=== PATIENT | female | born 1945 | race Asian ===

== ENCOUNTER 2016-03-14 13:06 | Observation (INO) | payer OTHER ==
--- NOTE | 2016-03-14 13:32 | EDPHY ---
H & P Stated Complaint: concerned for unimproved cellulitus R ankle, fever at home HPI/ROS: CHIEF COMPLAINT: HISTORY OF PRESENT ILLNESS: REVIEW OF SYSTEMS: A ten point review of systems was performed and is negative with the exception of the items mentioned in the HPI. Constitutional: No fever Eyes: No eye redness, no eye pain, no change in vision ENT: No sore throat, no earache Cardiovascular: No chest pain, no palpitations Abdominal: no abdominal pain, no nausea, no vomiting, no diarrhea Respiratory: No cough, no shortness of breath Genitourinary: No dysuria, No hematuria, [no urgency, no frequency Musculoskeletal: No back pain, no neck pain, no joint pain, no joint swelling, Skin: No rashes. Neurological: No headache, no new numbness, no new weakness, no difficulty with speech, no changes in memory - Personal History Current Tetanus/Diphtheria Vaccine: Unsure Current Tetanus Diphtheria and Acellular Pertussis (TDAP): Unsure - Medical/Surgical History Hx Asthma: No Hx Chronic Respiratory Disease: No Hx Diabetes: No Hx Cardiac Disease: Yes Hx Renal Disease: No Hx Cirrhosis: No Hx Alcoholism: No Hx HIV/AIDS: No Hx Splenectomy or Spleen Trauma: No Other PMH: cardiac stents-2004 - Social History Smoking Status: Never smoked - Physical Exam Exam: General Appearance: Alert. Vital signs reviewed. * Eyes: Pupils equal and round, no conjunctival injection, no discharge. Anicteric. ENT, Mouth: Mucous membranes are moist, no oropharyngeal erythema or edema. Neck: No lymphadenopathy, supple. Respiratory: Lungs are clear to auscultation; no wheezes, rales, or rhonchi. Cardiovascular: Regular rate and rhythm; no murmur, rub, or gallop. Gastrointestinal: Abdomen is soft and nontender, no masses or organomegaly, bowel sounds normal. Skin: Warm and dry, no rashes on exposed skin, normal color. Back: Nontender to palpation over the thoracolumbar spine. No CVAT. Extremities: No lower extremity edema, no calf tenderness or swelling. Neurological: Alert and oriented. Moving all four extremities easily and equally. Cranial nerves II through XII are examined and are intact (visual acuity not tested). Strength is 5 over 5 bilaterally with testing of all major motor groups. Sensation is intact to light touch over all 4 extremities. Deep tendon reflexes are 2+ in the biceps and knees bilaterally. Gait is normal. [id number] is performed accurately. Psychiatric: Normal affect. Constitutional: Initial Vital Signs Temperature (C) 37.2 C 03/14/16 13:12 Heart Rate 78 03/14/16 13:12 Respiratory Rate 16 03/14/16 13:12 Blood Pressure 165/76 H 03/14/16 13:12 O2 Sat (%) 91 L 03/14/16 13:12 O2 Delivery Mode Room Air Allergies/Adverse Reactions: Penicillins Allergy (Verified 04/28/12 11:55) Sulfa (Sulfonamide Antibiotics) Allergy (Verified 03/14/16 13:10) Home Medications: Medication Instructions Recorded Clopidogrel Bisulfate [Plavix] 75 mg PO DAILY 11/22/10 Levothyroxine Sodium [Synthroid] 0 mcg PO 11/22/10 Metoprolol Succinate Xr [Toprol Xl] 25 mg PO DAILY 11/22/10 Ramipril [Altace] 0 mg PO DAILY 11/22/10 amLODIPine BESYLATE [Norvasc 10 mg] 10 mg PO DAILY 11/22/10 Atorvastatin Calcium [Lipitor 10 10 mg PO DAILY 04/28/12 mg (RX)] Ondansetron Odt [Zofran Odt] 4 mg PO Q4PRN PRN #20 tab 04/28/12 Pantoprazole Sodium [Protonix] 40 mg PO DAILY #30 tab 06/12/15
--- NOTE | 2016-03-14 13:42 | EDPHY ---
H & P Stated Complaint: concerned for unimproved cellulitus R ankle, fever at home Time Seen by Provider: 03/14/16 13:31 HPI/ROS: CHIEF COMPLAINT: Continued right ankle infection. HISTORY OF PRESENT ILLNESS: This is a 70-year-old female with a 4 week history of right ankle cellulitis for which she has taken 3 days of clindamycin and 2 days of Doxycycline who presents with continued infection. She also reports that she developed fever 2 days ago, which she attributed to potential allergic reaction to Bactrim. She was placed on Bactrim after she failed to improve with clindamycin. After she developed fever, her primary care physician changed her to doxycycline have her discontinue the Bactrim. She has had the fever since trying to take Bactrim, which she immediately discontinued because of an "allergic reaction" to it that consisted of fever, headache, and diarrhea. She is also complaining of headache and achy back pain. She denies drainage from the scabs on her ankle. She denies cough, sore throat, rhinorrhea , myalgias, vomiting. Her temperature is 38.9 upon presentation. She has not gotten a flu vaccine this year. REVIEW OF SYSTEMS: Aside from elements discussed in the HPI, a comprehensive 10-point review of systems was reviewed and is negative. PAST MEDICAL HISTORY: Cardiac stents in 2003. SOCIAL HISTORY: Here with . VITAL SIGNS: Reviewed by me. O2 sat 91%. GENERAL: Well-developed, well-nourished, resting comfortably in no respiratory distress. HEENT: Atraumatic. Eyes: No icterus, no injection. Mouth: moist mucous membranes. No erythema or lesions. Neck: supple with no adenopathy. LUNGS: Occasional wheeze at the right base, diminished breath sounds at the left base. No rhonchi. CARDIAC: Regular rate and rhythm, no rubs, murmurs or gallops. ABDOMEN: Soft, nontender, nondistended, bowel sounds normal. BACK: No CVA tenderness. EXTREMITIES: Right ankle: 3 discrete area of erythema but no swelling with central scabbing. 1 on posterior calf, 2 medially. The lesions are tender. No edema. Range of motion is normal throughout. NEURO: Alert and oriented, grossly nonfocal. SKIN: Warm and dry, no rash. PSYCHIATRIC: Normal mentation, no agitation. Portions of this note were transcribed by a medical device sales consultant. I personally performed a history, physical exam, medical decision making, and confirmed accuracy of information the transcribed note. Source: Patient Exam Limitations: No limitations - Personal History Current Tetanus/Diphtheria Vaccine: Unsure Current Tetanus Diphtheria and Acellular Pertussis (TDAP): Unsure - Medical/Surgical History Hx Asthma: No Hx Chronic Respiratory Disease: No Hx Diabetes: No Hx Cardiac Disease: Yes Hx Renal Disease: No Hx Cirrhosis: No Hx Alcoholism: No Hx HIV/AIDS: No Hx Splenectomy or Spleen Trauma: No Other PMH: cardiac stents-2004 - Social History Smoking Status: Never smoked Constitutional: Initial Vital Signs Temperature (C) 37.2 C 03/14/16 13:12 Heart Rate 78 03/14/16 13:12 Respiratory Rate 16 03/14/16 13:12 Blood Pressure 165/76 H 03/14/16 13:12 O2 Sat (%) 91 L 03/14/16 13:12 O2 Delivery Mode Room Air Allergies/Adverse Reactions: Penicillins Allergy (Verified 04/28/12 11:55) Sulfa (Sulfonamide Antibiotics) Allergy (Verified 03/14/16 13:10) Home Medications: Medication Instructions Recorded Clopidogrel Bisulfate [Plavix] 75 mg PO DAILY 11/22/10 Levothyroxine Sodium [Synthroid] 0 mcg PO 11/22/10 Metoprolol Succinate Xr [Toprol Xl] 25 mg PO DAILY 11/22/10 Ramipril [Altace] 0 mg PO DAILY 11/22/10 amLODIPine BESYLATE [Norvasc 10 mg] 10 mg PO DAILY 11/22/10 Atorvastatin Calcium [Lipitor 10 10 mg PO DAILY 04/28/12 mg (RX)] Ondansetron Odt [Zofran Odt] 4 mg PO Q4PRN PRN #20 tab 04/28/12 Pantoprazole Sodium [Protonix] 40 mg PO DAILY #30 tab 06/12/15 Clindamycin 03/14/16 Medical Decision Making - Diagnostics Imaging: X-ray: Chest x-ray was obtained. I viewed the images myself on the PACS system. My interpretation of the images is: Bibasilar infiltrates. The radiologist interpretation is agrees. I discussed the x-ray findings with the [ patient]. ED Course/Re-evaluation: An IV was established and labs ordered. 1L IV saline administered for hydration. Right ankle x-ray ordered. Evaluation for the patient's fever was undertaken. Patient has a normal white blood cell count, normal chemistries, normal troponin. Rapid influenza testing is negative. Patient's chest x-ray demonstrates bilateral infiltrates. On re-examination the patient is noted to be hypoxic to 86-87% while laying on her side in bed. She received a albuterol neb treatment. Patient's lactic acid is normal. Levofloxacin 750 mg IV was given. Patient was reexamined after her nebulizer treatment. She is up and ambulatory but complaining of some shortness of breath and feeling tired. O2 sat on return from the restroom was 81%. Patient's family tells me now that they have noted a significant cough over the last several days as well as increased work of breathing. Patient's course was discussed with Dr. Alfonso Prescott. Patient will be admitted to the hospital for ongoing treatment of her pneumonia as well as her hypoxemia. Patient is currently on doxycycline for patches of erythema her ankle. I am not convinced that this represents cellulitis although the patient could continue her doxycycline to complete the course. Further evaluation with Infectious Disease may be indicated. Differential Diagnosis: Differential diagnosis for fever in adults was considered including but not limited to pneumonia, urinary tract infection, viral syndrome, cellulitis, bronchitis, and influenza. Consult/Admit Bed Type: Dr. Alfonso Prescott, med surg - Data Points Laboratory Results: Laboratory Results 03/14/16 14:20 03/14/16 14:20 03/14/16 03/14/16 15:15 14:20 WBC 6.77 10^3/uL (3.80-9.50) RBC 5.26 10^6/uL (4.18-5.33) Hgb 14.2 g/dL (12.6-16.3) Hct 43.2 % (38.0-47.0) MCV 82.1 fL (81.5-99.8) MCH 27.0 L pg (27.9-34.1) MCHC 32.9 g/dL (32.4-36.7) RDW 13.9 % (11.5-15.2) Plt Count 190 10^3/uL (150-400) MPV 9.9 fL (8.7-11.7) Neut % (Auto) 73.0 % (39.3-74.2) Lymph % (Auto) 17.0 % (15.0-45.0) [place] % (Auto) 8.7 % (4.5-13.0) Eos % (Auto) 0.4 L % (0.6-7.6) Baso % (Auto) 0.6 % (0.3-1.7) Nucleat RBC Rel Count 0.0 % (0.0-0.2) Absolute Neuts (auto) 4.94 10^3/uL (1.70-6.50) Absolute Lymphs (auto) 1.15 10^3/uL (1.00-3.00) Absolute Monos (auto) 0.59 10^3/uL (0.30-0.80) Absolute Eos (auto) 0.03 10^3/uL (0.03-0.40) Absolute Basos (auto) 0.04 10^3/uL (0.02-0.10) Absolute Nucleated RBC 0.00 10^3/uL (0-0.01) Immature Gran % 0.3 % (0.0-1.1) Immature Gran # 0.02 10^3/uL (0.00-0.10) VBG Lactic Acid 1.2 mmol/L (0.7-2.1) Sodium 138 mEq/L (134-144) Potassium 4.3 mEq/L (3.5-5.2) Chloride 102 mEq/L (97-110) Carbon Dioxide 25 mEq/l (22-31) Anion Gap 11 mEq/L (8-16) BUN 15 mg/dL (7-23) Creatinine 0.8 mg/dL (0.6-1.0) Estimated GFR > 60 Glucose 76 mg/dL (70-100) Calcium 9.2 mg/dL (8.5-10.4) Total Bilirubin 0.6 mg/dL (0.1-1.4) Conjugated Bilirubin 0.4 mg/dL (0.0-0.5) Unconjugated Bilirubin 0.2 mg/dL (0.0-1.1) AST 32 IU/L (14-46) ALT 41 IU/L (9-52) Alkaline Phosphatase 101 IU/L (38-126) Troponin I < 0.012 ng/mL (0-0.034) Total Protein 7.9 g/dL (6.3-8.2) Albumin 4.1 g/dL (3.5-5.0) Urine Color PALE YELLOW Urine Appearance CLEAR Urine pH 5.0 (5.0-7.5) Ur Specific [place] 1.008 (1.002-1.030) Urine Protein NEGATIVE (NEGATIVE) Urine Ketones TRACE H (NEGATIVE) Urine Blood 1+ H (NEGATIVE) Urine Nitrate NEGATIVE (NEGATIVE) Urine Bilirubin NEGATIVE (NEGATIVE) Urine Urobilinogen NEGATIVE EU (0.2-1.0) Ur Leukocyte Esterase NEGATIVE (NEGATIVE) Urine RBC 1-3 /hpf (0-3) Urine WBC 1-3 /hpf (0-3) Ur Epithelial Cells NONE SEEN /lpf (NONE-1+) Urine Mucus TRACE /lpf (NONE-1+) Urine Glucose NEGATIVE (NEGATIVE) Influenza Typ A,B (DFA) NEGATIVE FOR FLU (NEGATIVE) Influenza A & B (PCR) Pending Medications Given: Discontinued Medications Albuterol (Proventil Neb) 3 ml IH EDNOW ONE Stop: 03/14/16 15:32 Last Admin: 03/14/16 15:42 Dose: 3 ml Sodium Chloride (Ns) 1,000 mls @ 0 mls/hr IV ONCE ONE PRN Reason: Wide Open Stop: 03/14/16 14:01 Last Admin: 03/14/16 14:20 Dose: 1,000 mls Departure - Departure Disposition: [facility] Inpatient Acute Clinical Impression: Ankle cellulitis Pneumonia Qualifiers: Pneumonia type: due to unspecified organism Laterality: bilateral Lung location : lower lobe of lung Qualifier Code: (J18.9) Pneumonia, unspecified organism Condition: Fair Referrals: Ha Hilario MD [Primary Care Provider] - As per Instructions Report Scribed for: Peggy Garrett Report Scribed by: Chet Pierre Date of Report: 03/14/16 Time of Report: 13:42
[2016-03-14] MEDS ORDERED: NS 1,000 ML IV ONE (14:00)
[2016-03-14 14:30] LABS: % IMMATURE GRANULYOCYTES 0.3 % (0.0-1.1); ABSOLUTE IMMATURE GRANULOCYTES 0.02 10^3/uL (0.00-0.10); ADD DIFF? NO; ADD MORPH? NO; ADD SCAN? NO; ATYPICAL LYMPHOCYTE FLAG 0 (0-99); FRAGMENT RBC FLAG 0 (0-99); HEMATOCRIT 43.2 % (38.0-47.0); HEMOGLOBIN 14.2 g/dL (12.6-16.3); LEFT SHIFT FLG 0 (0-99); LIPEMIA HEMOLYSIS FLAG 80 (0-99); MEAN CELL HEMOGLOBIN CONCENTR. 32.9 g/dL (32.4-36.7); MEAN CELL VOLUME 82.1 fL (81.5-99.8); MEAN PLATELET VOLUME 9.9 fL (8.7-11.7); PLATELET CLUMPS FLAG 0 (0-99); PLATELET COUNT 190 10^3/uL (150-400); RED BLOOD CELL COUNT 5.26 10^6/uL (4.18-5.33); RED CELL DISTRIBUTION WIDTH 13.9 % (11.5-15.2)
[2016-03-14 14:42] LABS: ALANINE AMINOTRANSFERASE 41 IU/L (9-52); ALBUMIN 4.1 g/dL (3.5-5.0); ALKALINE PHOSPHATASE 101 IU/L (38-126); ANION GAP 11 mEq/L (8-16); ASPARTATE AMINOTRANSFERASE 32 IU/L (14-46); BILIRUBIN,TOTAL 0.6 mg/dL (0.1-1.4); BILIRUBIN-CONJUGATED 0.4 mg/dL (0.0-0.5); BILIRUBIN-UNCONJUGATED 0.2 mg/dL (0.0-1.1); CALCIUM 9.2 mg/dL (8.5-10.4); CARBON DIOXIDE 25 mEq/l (22-31); CHLORIDE 102 mEq/L (97-110); CREATININE 0.8 mg/dL (0.6-1.0); GLOMERULAR FILTRATION RATE > 60; GLUCOSE 76 mg/dL (70-100); POTASSIUM 4.3 mEq/L (3.5-5.2); SODIUM 138 mEq/L (134-144); TOTAL PROTEIN 7.9 g/dL (6.3-8.2)
[2016-03-14 14:53] LABS: TROPONIN I < 0.012 ng/mL (0-0.034)
--- NOTE | 2016-03-14 15:24 | DX ---
Chest, Two Views March 14, 2016 at 1436 hours History: Fever. Comparison: May 2015. Findings: Cardiac silhouette is within normal range. Patchy alveolar opacities bilateral lower lobe s consistent with pneumonia. No pleural effusion. Impression: Bilateral lower lobe pneumonia.
--- NOTE | 2016-03-14 15:25 | DX ---
Right Ankle, Three Views History: Swelling, pain, fever, bug bite. Findings: No acute fracture or dislocation identified. No evidence of soft tissue swelling. No oly tructive osseous lesions. The ankle mortise appears intact. Plantar calcaneal spur. Impressions 1. No definite acute fracture. 2. No radiographic evidence of osteomyelitis.
[2016-03-14 15:26] LABS: COLOR PALE YELLOW; LEUKOCYTE ESTERASE,URINE NEGATIVE (NEGATIVE); NITRITE,URINE NEGATIVE (NEGATIVE)
[2016-03-14 15:31] LABS: MUCUS TRACE /lpf (NONE-1+)
[2016-03-14] MEDS ORDERED: ALBUTEROL 3 ML DEYVIAL IH ONE (15:31)
--- NOTE | 2016-03-14 16:31 | CPEKG ---
Heart Rate: 68 RR Interval: 882 P-R Interval: 164 QRSD Interval: 132 QT Interval: 440 QTC Interval: 469 P [place]: 60 QRS [place]: -2 T Wave [place]: 101 EKG Severity - ABNORMAL ECG - EKG Impression: SINUS RHYTHM EKG Impression: LEFT BUNDLE BRANCH BLOCK Electronically Signed By: Peggy Garrett 14-Mar-2016 18:12:01
[2016-03-14] MEDS ORDERED: PANTOPRAZOLE SODIUM 40 MG TAB PO PRN (17:41)
[2016-03-14] MEDS ORDERED: ACETAMINOPHEN 325 MG TAB PO PRN (17:46)
[2016-03-14] MEDS ORDERED: ONDANSETRON DISINTEGRATING 4 MG TAB PO PRN (17:46)
[2016-03-14] MEDS ORDERED: ONDANSETRON 4 MG/2 ML VIAL IVP PRN (17:46)
--- NOTE | 2016-03-14 18:38 | GHP ---
[f rep st] HISTORY AND PHYSICAL DATE OF ADMISSION: 03/14/2016 The patient is a pleasant 70-year-old female, with a history of coronary disease and recent right low er extremity cellulitis, who presents to the ER for re-evaluation of the cellulitis. It sounds like she traveled to [facility] over the iday, which at this point is about 6 weeks ago, a nd had what she assumes were bug bites around her ankles. She has had some pain and swelling. She s aw an Urgent Care after [place] and it sounds like initially started on clindamycin and doxycycline , and then she saw her primary care physician for followup and was placed on Bactrim, and she receive d 1 dose and then developed some fever and maybe some diarrhea, but no rash. This is considered an a llergic reaction to Bactrim. So she was then transferred to doxycycline. She has been noting some p itting edema around that side that is improved today. She has been taking some scheduled ibuprofen. She has not noticed cough or shortness of breath, but it sounds like with her fever she has been spen ding some time in bed. She has her leg elevated. She does not have diabetes. She knows of no antec edent trauma to this area on her right leg. She does not cough when she eats. She does not have con gestive heart failure. She has not had anginal-type symptoms. She has not had vomiting. Other than the 1 episode of diarrhea after taking the Bactrim, she has had no further diarrhea. REVIEW OF SYSTEMS: Complete 10-point review of systems conducted, negative except as noted in the HP I. PAST MEDICAL HISTORY: 1. Hypothyroidism. 2. Cardiac stents in 2003. 3. Hypertension. SOCIAL HISTORY: No tobacco. She drinks alcohol about once a week. She lives in [facility]. Lifelong nonsmoker. She is a real estate valuer. ALLERGIES: Penicillin and sulfa. HOME MEDICATIONS: Ramipril, metoprolol, pantoprazole, amlodipine, levothyroxine, Plavix and atorvast atin. PHYSICAL EXAMINATION: VITAL SIGNS: Temperature 37.2, blood pressure 165/76, pulse 78, breathing 16 times a minute, 91% on room air, but she was saturating down to 85% with ambulation. GENERAL: No ac t[place]carora distress. HEENT: Sclerae anicteric. Oropharynx clear. Mucous membranes moist. NECK: Supple, without lymphadenopathy or JVD. LUNGS: Clear to auscultation bilaterally. Lungs showed good air m ovement bilaterally with decreased breath sounds at the bases. HEART: S1, S2. ABDOMEN: Soft, nont gary, nondistended. ABDOMEN: Soft, nontender, nondistended. LOWER EXTREMITIES: Without edema. H er right lower extremity shows 2 well-healed eschars just posterior to her medial malleolus. Her [place]is pulse is 2+. There is no evidence of peripheral vascular disease. There is no surroundi ng cellulitis. There is no pitting edema. SKIN: Without rash. NEUROLOGIC: Nonfocal. LABS: Influenza negative by DFA. White count 6.7, hematocrit 43, platelets are 190,000. Venous [place] is 1.2. Sodium 138, potassium 4.3, chloride 102, bicarb 25, BUN 15, creatinine 0.8. LFTs brayden l. Troponin less than 0.012. Albumin is 4.1. UA is unremarkable. Chest x-ray, interpreted by me, shows bilateral lower lobe pneumonia without focal infiltrate. This is somewhat diffuse. Ankle film shows no cellulitis. EKG is pending. I have discussed the case with Dr. Peggy Garrett. ASSESSMENT/PLAN: This 70-year-old female presents with likely community-acquired pneumonia. 1. Community-acquired pneumonia. This is bilateral with faint infiltrates, possibly viral versus at ypical. She has been started on levofloxacin, which I have written to continue, given her penicillin allergy. She did receive numerous antibiotics prior to this, but not in substantial doses that woul d have potentially treated pneumonia. Alternatively, this is viral. 2. SIRS. She does not have SIRS. 3. Lower extremity infection. This is a chronic wound following an apparent bite versus injury whil e in [facility]. It appears without infection now. We will follow. Certainly, should this recur, t hen expanded differential should be considered. I do not think this represents peripheral vascular d isease. 4. Coronary disease. Continue her medication. 5. Hypertension. Continue her medication. 6. Prophylaxis. Pharmacologic prophylaxis indicated if in the hospital longer than 48 hours and I s uspect she will not be. 7. Disposition. Observation status. /[id number]/MODL
[2016-03-14] MEDS ORDERED: METOPROLOL TARTRATE 50 MG TAB PO SCH (21:00)
[2016-03-14] MEDS ORDERED: ATORVASTATIN CALCIUM 20 MG TAB PO SCH (21:00)
[2016-03-15] MEDS ORDERED: LEVOTHYROXINE 50 MCG TAB PO SCH (06:00)
[2016-03-15] MEDS ORDERED: RAMIPRIL 5 MG CAP PO SCH (09:00)
[2016-03-15] MEDS ORDERED: METOPROLOL TARTRATE 25 MG TAB PO SCH (09:00)
[2016-03-15] MEDS ORDERED: CLOPIDOGREL BISULFATE 75 MG TAB PO SCH (09:00)
[2016-03-15 12:27] VITALS: BP 107/74; PULSE 59; RESP 16; TEMP 98.1; O2SAT 91
[2016-03-15] MEDS ORDERED: FLU VACC TS 2016-17(65YR+)/PF 0.5 ML SYR (FLUZONE HIGH DOSE) IM ONE (12:27)
[2016-03-15] MEDS ORDERED: PNEUMOC 13-VAL CONJ-DIP CRM/PF 0.5 ML SYR IM ONE (12:28)
--- NOTE | 2016-03-15 14:11 | GDS ---
[f rep st] DISCHARGE SUMMARY DISCHARGE DIAGNOSES: 1. Community-acquired pneumonia. 2. Lower extremity abnormality. 3. History of hypertension. 4. History of coronary artery disease. STUDIES AND PROCEDURES DONE: Right ankle x-ray. PHYSICAL EXAM: GENERAL: The patient is alert and oriented, in no acute distress. VITAL SIGNS: Afe brile at 36.7, pulse is 59, respiratory rate is 16, blood pressure is 107/74. She is saturating less than 88% on room air. I have seen and evaluated the patient on the day of discharge. HOSPITAL COURSE: Ms. Wade is a 70-year-old female, who presented to the emergency room with compla ints of cellulitis. She was evaluated and diagnosed with: 1. Community-acquired pneumonia. During this hospitalization, patient was noted to be hypoxic. A c hest x-ray was performed noting bilateral lower extremity pneumonia. She has been initiated on Levaq uin and will continue this in the outpatient setting. 2. Acute hypoxemic respiratory failure. This is secondary to the patient's acute infectious process and will be discharged home on home oxygen. 3. Lower extremity infection. She does not appear to be having any infectious process currently. S he will continue antibiotic therapy in the outpatient setting and follow up with her primary care noah jack. 4. History of hypertension. This is well controlled on her medications. DISPOSITION: The patient will be discharged home with her . There are no pending studies. DISCHARGE MEDICATIONS: I have provided the patient a prescription for Levaquin 750 mg daily. FOLLOWUP: Will be with Dr. Hilario in 2-3 days, as well as return to the emergency room if she has an y complaints of shortness of breath or continued ill-feeling. Patient is in agreement with this plan and feels comfortable with this disposition. /[id number]/MODL
== END 2016-03-15 14:48 | disposition home or self-care (01) ==
LOC: F3N 17:11
PROVIDERS: ADMIT Internal Medicine; ATTEND Internal Medicine
DX: J18.9 Pneumonia, unspecified organism (principal); J96.01 Acute respiratory failure with hypoxia; L03.115 Cellulitis of right lower limb; I10 Essential (primary) hypertension; I25.10 Atherosclerotic heart disease of native coronary artery without angina pectoris; E03.9 Hypothyroidism, unspecified; I44.7 Left bundle-branch block, unspecified; Z95.5 Presence of coronary angioplasty implant and graft; Z88.2 Allergy status to sulfonamides; Z88.0 Allergy status to penicillin; Z23 Encounter for immunization
CPT/HCPCS: 71020; 73610; 90662; 90670; 93005; 96361; 96374; 99285; G0008; G0009; G0378; J1956

== ENCOUNTER → 2016-03-31 | Outpatient (CLI) | payer OTHER ==
--- NOTE | 2016-03-31 10:42 | DX ---
Chest, PA and lateral HISTORY: Follow-up pneumonia, persistent dyspnea and O2 requirement, J15.9 Comparison: March 14, 2016 FINDINGS: Bilateral possibly interstitial infiltrates have improved. There is persistent bronchial wa ll thickening. There is no pleural fluid. Heart size remains at the upper limits of normal, with evid ence for coronary artery disease. Pulmonary vascularity is normal. Right upper quadrant surgical clip s are again present, consistent with previous cholecystectomy. There is chronic atherosclerotic calci fication of the aortic arch and abdominal aorta. Impression: 1. Improving infiltrates. 2. Persistent underlying airways disease.
== END ==
LOC: BMCIMAGING 10:17
PROVIDERS: ATTEND Internal Medicine
DX: J15.9 Unspecified bacterial pneumonia (principal)

== ENCOUNTER → 2016-04-16 | Outpatient (CLI) | payer OTHER ==
--- NOTE | 2016-04-16 09:33 | DX ---
Chest, Two Views April 16, 2016, at 0858 Hours History: J18.9, pneumonia follow up. Comparison: March 31, 2016, February 29, 2016, April 2015. Findings: Cardiac silhouette is within normal range. Definite improvement in interstitial opacities s darling February 2016 with minimal improvement since March 31, 2016. Persistent increased linear stephanie ngs in bilateral lower lobes especially in the left lower lobe which are unchanged since April 6 suggesting residual pleuroparenchymal scarring. No pleural effusion or pulmonary edema. No new infiltrates. Bilateral apical pleuroparenchymal scarri ng also noted. Impression: 1. Resolution of previous bilateral pneumonia. 2. Residual pleuroparenchymal scarring bilateral lower lobes. 3. If there are persistent symptoms, consider low dose screening CT chest for further evaluation of p ossible interstitial lung disease at the lung bases.
== END ==
LOC: BMCIMAGING 08:53
PROVIDERS: ATTEND Internal Medicine
DX: J18.9 Pneumonia, unspecified organism (principal)

== ENCOUNTER → 2016-04-22 | Outpatient (CLI) | payer OTHER ==
--- NOTE | 2016-04-23 16:11 | CT ---
High resolution Chest CT Without Contrast Indication: Dyspnea. Technique: Axial high resolution computed tomographic images obtained including inspiratory and expir atory 1.25 mm slice thickness images at 10 mm intervals. Prone axial images through the lung bases wi th inspiratory phase at 1.25 mm thickness at 10 mm intervals. Axial 2.5 mm images through the entire chest with inspiratory phase also obtained. No intravenous contrast utilized. Dose reduction techniqu es were utilized. Comparison: CT of the abdomen and pelvis dated April 28, 2012 and 2 view chest dated April 16. Findings: Moderate diffuse centrilobular emphysema preferentially affects the lung apices. Mild diffu se peribronchial thickening throughout the right and left lung without bronchiectasis or mucous plugg ing. Mosaic groundglass air trapping is most conspicuous on the expiratory phase. Minimal subpleural reticular abnormality is present in the lateral segment of bilateral lower lobes. No fissural nodules , honeycombing, subpleural bands, or traction bronchiectasis. No suspicious spiculated or groundglass nodules. A benign calcified granuloma in the lateral segment of the right middle lobe on image 122 of series 7 measures 4 mm. The heart size is normal with extensive three-vessel calcified coronary plaque. No pericardial or ple ural effusion. The thoracic aorta has normal caliber with mild calcified plaque. No enlarged lymph node or mass throughout the axilla, mediastinum, pulmonary elisa, or imaged portion of the upper abdomen. Moderate dilation of the common hepatic duct is unchanged since April 2012. Small hiatal hernia is unchanged. Impression: 1. Moderate centrilobular emphysema with associated chronic airways disease and air trapping. 2. No pulmonary fibrosis. 3. No lymphadenopathy, mass, or suspicious pulmonary nodule. 4. Three-vessel calcified coronary plaque.
== END ==
LOC: FIMAGING 11:56
PROVIDERS: ATTEND Internal Medicine Pulmonary Disease
DX: J84.9 Interstitial pulmonary disease, unspecified (principal); J43.9 Emphysema, unspecified; I25.10 Atherosclerotic heart disease of native coronary artery without angina pectoris

== ENCOUNTER → 2016-04-29 | Outpatient (CLI) | payer OTHER | LOC: BHFA 13:00 | PROVIDERS: ATTEND Internal Medicine Cardiovascular Disease | DX: I10 Essential (primary) hypertension (principal); I25.10 Atherosclerotic heart disease of native coronary artery without angina pectoris; R06.02 Shortness of breath | CPT/HCPCS: 78452; 93017; 93306; A9500; J2785 ==

== ENCOUNTER → 2017-07-20 | Outpatient (CLI) | payer OTHER | LOC: BHFA 08:30 | PROVIDERS: ATTEND Internal Medicine Cardiovascular Disease | DX: R06.02 Shortness of breath (principal); R06.00 Dyspnea, unspecified; I25.10 Atherosclerotic heart disease of native coronary artery without angina pectoris | CPT/HCPCS: 78452; 93017; 93306; A9500; J2785 ==

== ENCOUNTER 2017-09-23 07:37 | Observation (INO) | payer OTHER ==
[2017-09-23] MEDS ORDERED: DIAZEPAM 5 MG TAB PO ONE (07:39)
[2017-09-23] MEDS ORDERED: diphenhydrAMINE 25 MG CAP PO ONE (07:39)
[2017-09-23] MEDS ORDERED: ASPIRIN EC 325 MG TAB PO ONE (07:39)
[2017-09-23] MEDS ORDERED: NS 1,000 ML IV ONE (07:39)
[2017-09-23] MEDS ORDERED: FAMOTIDINE 20 MG TAB PO ONE (07:39)
--- NOTE | 2017-09-23 07:57 | CPEKG ---
Heart Rate: 60 RR Interval: 1000 P-R Interval: 168 QRSD Interval: 136 QT Interval: 488 QTC Interval: 488 P [place]: 61 QRS [place]: 8 T Wave [place]: 91 EKG Severity - ABNORMAL ECG - EKG Impression: SINUS RHYTHM EKG Impression: LEFT BUNDLE BRANCH BLOCK Electronically Signed By: Leo Conn 23-Sep-2017 16:24:31
[2017-09-23 08:10] LABS: PLATELET COUNT 197 10^3/uL (150-400)
[2017-09-23] MEDS ORDERED: CLOPIDOGREL BISULFATE 75 MG TAB ONE ×2 (08:15→10:05)
[2017-09-23 08:22] LABS: INR 0.95 (0.83-1.16); PROTIME(PATIENT) 12.9 SEC (12.0-15.0)
[2017-09-23] MEDS ORDERED: CLOPIDOGREL BISULFATE 75 MG TAB PO ONE ×2 (08:30→10:06)
--- NOTE | 2017-09-23 08:48 | PDPROPOC ---
Sedation Plan of Care Sedation Plan of Care: vital signs stable, mental status noted, patient educated of risks, benefits, alternatives, patient can tolerate sedation ASA Classification: ASA 3 Planned drugs: fentanyl, midazolam Mallampati Score: Class 3 Mallampati Reference Image: Patient passed 3-3-2 rule?: Yes
[2017-09-23] MEDS ORDERED: LIDOCAINE 1% 300 MG/30 ML SDV ONE (08:49)
[2017-09-23] MEDS ORDERED: MIDAZOLAM 2 MG/2 ML VIAL ONE (08:49)
[2017-09-23] MEDS ORDERED: IOPAMIDOL (ISOVUE-370) 150 ML BTL IV ONE (08:49)
[2017-09-23] MEDS ORDERED: fentaNYL 100 MCG/2 ML INJ ONE (08:49)
[2017-09-23] MEDS ORDERED: VERAPAMIL 5 MG/2 ML VIAL ONE (08:49)
[2017-09-23] MEDS ORDERED: HEPARIN 10,000 UNIT/10 ML MDV (1,000 UNIT/ML) ONE (08:49)
--- NOTE | 2017-09-23 08:53 | PDGENHP ---
History & Physical Chief Complaint: shortness of breath History of Present Illness: Patient has shortness of breath NYHA Class III shortness of breath hx of HI and stent in 2004 also intermediate risk stress test. Dr. Bernardo Cortez has made a request that she have a heart cath to rule out coronary disease. Pertinent Past, Social, Family History: prior HI and stent 2004 with shortness of breath. Relevant Physical Exam: heart regular rate rhythm as well as clear lung salgado please see sedation plan of care Normal Dannie's test on left, right hand dominant Cardiorespiratory Assessment: see sedation plan of care.
--- NOTE | 2017-09-23 09:34 | PDDXCAT ---
Diagnostic Cath Note - . Date: 09/23/17 Fire Controlman: Kary Indication: CCC Class III and IV angina on medical treatment - Procedure Access: left wrist Procedure: left heart catheterization, coronary angiography, left ventriculogram - Materials Left Heart Cath size: 6F Left Heart Cath materials: standard multipack (JL4, JR4, pigtail) - Findings-Left Heart Catheterization LM: The LM is 6mm in size. It bifurcates into an LAD and circumflex system. LAD: The LAD is 3mm in size. It has disease at the ostial takeoff. The LAD has been previously stented. There is a 95% obsturction of the mid LAD, proximal to the prevous stent. LCX: The circumflex has a 40% stenosis and is diffusely diseased in the proximal and mid segment. There is high OM that is a functional ramus vessel. It is 2mm in size. RCA: The RCA is 3mm in size and was previously stented. There is 20% instent restenosis. EDP: 23mmHg LVEF: The EF is greater than 75% Wall motion: On the LV gram there is normal LV systolic function. The EF is greater than 75%. There are no resting segmental wall motion abnormalities. 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 There is no gradient on pullback across the aortic valve. There is no evidence of fiorella dissection or aneurysm formation. Complications: NONE. Estimated blood loss: <50ml Closure method: TR Band Assessment: The patient has [place] vessel coronary disease with a 95% obstruction of the mid LAD that required stenting. Plan: Dual antiplatelet therapy with Aspirin 325mg for the first month followed by Aspirin 81mg along with Plavix 75mg should be continued for at least 1 year following drug eluting stent implantation. No elective surgery for the first 3 months. Decisions to stop dual antiplatelet therapy before 1 year should involve our office at [facility]. Intervention: A 6 Yi JL3.5 guiding catheter was used for guide catheter support. A 0.014" Intuition wire was advanced across the lesion in the mid LAD under direct fluoroscopic and angiographic guidance. The lesion was primarily ballooned with a 3.0 x 12 mm Emerge balloon. The lesion was secondarily stented with a Synergy 3.0 x12 mm drug eluting stent. There was 0% residual stenosis post stent. CATHEI III flow was present pre and post stent. Patient Problems: Problems Problem Status Onset Ankle cellulitis Acute Pneumonia Acute
[2017-09-23] MEDS ORDERED: ATROPINE SULFATE 1 MG/10 ML SYR IVP PRN (10:06)
[2017-09-23] MEDS ORDERED: ONDANSETRON 4 MG/2 ML VIAL IVP PRN (10:06)
[2017-09-23] MEDS ORDERED: NITROGLYCERIN 0.4 MG BTL SL PRN (10:06)
[2017-09-23] MEDS ORDERED: LORazepam 2 MG/ML INJ IVP PRN (10:06)
[2017-09-23] MEDS ORDERED: OXYCODONE/APAP 5/325 TAB PO PRN (10:06)
[2017-09-23] MEDS ORDERED: TEMAZEPAM 15 MG CAP PO PRN (10:06)
[2017-09-23] MEDS ORDERED: HYDROCODONE/APAP 5/325 TAB PO PRN (10:06)
[2017-09-23] MEDS ORDERED: NS 1,000 ML IV SCH (10:15)
--- NOTE | 2017-09-23 11:12 | CPEKG ---
Heart Rate: 48 RR Interval: 1250 P-R Interval: 180 QRSD Interval: 130 QT Interval: 520 QTC Interval: 465 P [place]: 46 QRS [place]: -6 T Wave [place]: 74 EKG Severity - ABNORMAL ECG - EKG Impression: SINUS BRADYCARDIA EKG Impression: LEFT BUNDLE BRANCH BLOCK Electronically Signed By: Leo Conn 23-Sep-2017 16:24:12
[2017-09-23] MEDS ORDERED: PANTOPRAZOLE SODIUM 40 MG TAB PO PRN (16:39)
[2017-09-23] MEDS: RAMIPRIL 5 MG CAP PO SCH (20:44)
[2017-09-23] MEDS ORDERED: METOPROLOL SUCCINATE XR 50 MG TAB PO SCH (21:00)
[2017-09-23] MEDS ORDERED: ATORVASTATIN CALCIUM 20 MG TAB PO SCH (21:00)
[2017-09-24 04:30] LABS: PLATELET COUNT 197 10^3/uL (150-400)
[2017-09-24] MEDS ORDERED: LEVOTHYROXINE 50 MCG TAB PO SCH (06:00)
[2017-09-24 08:44] VITALS: BP 122/63
--- NOTE | 2017-09-24 08:46 | CPEKG ---
Heart Rate: 51 RR Interval: 1176 P-R Interval: 160 QRSD Interval: 128 QT Interval: 496 QTC Interval: 457 P [place]: 41 QRS [place]: -13 T Wave [place]: 101 EKG Severity - ABNORMAL ECG - EKG Impression: SINUS RHYTHM EKG Impression: LEFT BUNDLE BRANCH BLOCK Electronically Signed By: Rick Goel 25-Sep-2017 11:18:13
[2017-09-24] MEDS ORDERED: METOPROLOL SUCCINATE XR 25 MG TAB PO SCH (09:00)
[2017-09-24] MEDS ORDERED: CLOPIDOGREL BISULFATE 75 MG TAB PO SCH ×2 (09:00)
[2017-09-24] MEDS ORDERED: ASPIRIN EC 325 MG TAB PO SCH (09:00)
[2017-09-24] MEDS: RAMIPRIL 5 MG CAP PO SCH (09:10)
--- NOTE | 2017-09-24 10:28 | CPR ---
[f rep st] DISCHARGE SUMMARY ADMISSION DIAGNOSES: 1. Shortness of breath with exertion, abnormal MPI study. 2. Coronary artery disease. 3. Hyperlipidemia. 4. Known history of left bundle branch block. 5. Chronic obstructive pulmonary disease. 6. Hypertension. 7. Hyperlipidemia. 8. Hypothyroidism. DISCHARGE DIAGNOSES: 1. Coronary artery disease. 2. Status post percutaneous coronary intervention with drug-eluting stent implantation of a 3.0 x 12 Synergy drug-eluting stent into the mid left anterior descending. 3. Hyperlipidemia. 4. Known history of left bundle branch block. 5. Chronic obstructive pulmonary disease. 6. Hypothyroidism. 7. Hypertension. PROCEDURES PERFORMED DURING HOSPITALIZATION: 1. Electrocardiogram. 2. Diagnostic heart catheterization via left radial approach. 3. Percutaneous coronary intervention of the mid LAD with a 3.0 x 12 Synergy FELICIA. BRIEF HISTORY: Please see H and P, the patient is a 72-year-old female with known history of CAD. She has been noting increased shortness of breath with exertion, she had recently underwent MPI study showing intermittent ischemia on her Lexiscan stress test. It was recommended by Dr. Cortez, her primary chairman president and chief executive officer, to undergo a diagnostic heart catheterization for further evaluation. The patient was admitted through CVC, prepped for procedure, and taken to the cardiac slab stripper where she underwent a diagnostic heart catheterization by Dr. Preston via left radial approach. Findings of the study showed left main normal in size, no flow-limiting disease, LAD with noted previous distal LAD stent, noted proximal to previous stent. There was a 95% obstruction. The circumflex had a 40% stenosis with diffuse disease in proximal and mid segments. RCA noted to have up to 20% in-stent restenoses of previous stent. LVEF was 75% with EDP of 23 mmHg. At that point, Dr. Preston proceeded with intervening on the LAD, in which a 3.0 x 12 mm Synergy FELICIA was implanted. No apparent complications. Patient was taken back to the CVC, and ultimately to the PCU for overnight observation. There she has maintained sinus zackary sinus rhythm with no malignant arrhythmias. She has been up and walking unit, reporting significant improvement in her shortness of breath. She denies of any chest pressure or pain or symptoms suggesting of ischemia. PHYSICAL EXAMINATION: GENERAL APPEARANCE: Small statured, well-groomed, elderly female, she is alert and oriented to person, place, time, situation. Appears to be under no acute distress. VITAL SIGNS: Current vital signs are blood pressure of 122/63, heart rate 55, sinus zackary on the monitor, respirations are 12 with SpO2 of 91% on room air, temperature 36.7 degrees Celsius. HEENT: Head is normocephalic. Lips and tongue are pink and moist with no signs of cyanosis. Conjunctivae pink. NECK: Trachea is midline. +2 carotid pulses bilateral. No auscultated bruits. No jugular vein distention. RESPIRATORY: Lungs are clear to auscultation. No rhonchi, rales or wheezes. No accessory muscle use. No intercostal muscle retraction noted. CARDIAC: Regular rate, regular rhythm, S1, S2. No S3, S4, gallops, rubs or murmurs noted. ABDOMEN: Soft, nontender, bowel sounds x4 quadrants. No organomegaly. No palpable masses. SKIN: [place], warm, dry, no cyanosis, no clubbing, no peripheral edema. VASCULAR: +2 carotids bilateral, +2 radials bilateral, +1 dorsal pedal and posterior tibial pulses bilateral. Catheter insertion site, left wrist site radial approach, with mild ecchymosis but no hematoma around insertion site. Fifty cent size, normal capillary refill into hand, normal CMS checks to left hand. LABORATORY STUDIES: Laboratory studies drawn today show WBC of 6.01, hemoglobin of 12.6, hematocrit of 40.0, platelet count 197. Sodium 137, potassium 4.6, chloride 106, CO2 25, BUN 18, creatinine 0.8, glucose 90, calcium 9.2, phosphorus 4.3, magnesium 2.4, AST 0.4, AST 31, lactate 517, albumin 3.6. Noted yesterday fasting lipid panel showed triglycerides of 113, total cholesterol 160, LDL of 73, HDL of 64. STUDIES: Diagnostic heart catheterization and percutaneous coronary intervention as mentioned above, this morning's a.m. electrocardiogram shows sinus rhythm with left bundle branch block. DISCHARGE DISPOSITION: Patient will be discharged home in stable condition. She is under activity restrictions of not lifting more than 10 pounds with the left arm for the next week and no strenuous activity for the next 2 weeks. DISCHARGE MEDICATIONS: Please see discharge medication reconciliation sheet, the patient has been resumed on all home medications except her aspirin therapy has been increased to 325 mg once daily in which we will plan for her to stay on this for 1 month, and then decrease down to 81 mg. She has also resumed home dose of Plavix at 75 mg p.o. daily. DISCHARGE INSTRUCTIONS: Post percutaneous coronary intervention discharge instructions went over with the patient including monitoring for signs of infection, bleeding precautions, activity restrictions, medication compliance. It was explained specifically to the patient about the importance of staying on dual anti-platelet therapy especially with recent stent implantation. If this medicine needs to be stopped for any reason, she has been told [facility] needs to know about it. The patient has a followup appointment scheduled with her primary chairman president and chief executive officer, on October 04, Dr. Cortez. At the time of discharge , patient verbalizes all discharge instructions and has no questions or concerns. She has been told if any problems or concerns post discharge, she is suppose to call our office or return to the hospital. Total time spent on discharge greater than 30 minutes. /[id number]/MODL MTDD
== END 2017-09-24 10:35 | disposition home or self-care (01) ==
LOC: FCATH 07:37 → F2W 10:09
PROVIDERS: ADMIT Internal Medicine Cardiovascular Disease; ATTEND Internal Medicine Cardiovascular Disease
DX: I25.10 Atherosclerotic heart disease of native coronary artery without angina pectoris (principal); R06.02 Shortness of breath; R94.39 Abnormal result of other cardiovascular function study; I44.7 Left bundle-branch block, unspecified; T82.858A Stenosis of other vascular prosthetic devices, implants and grafts, initial encounter; I25.2 Old myocardial infarction; E78.5 Hyperlipidemia, unspecified; J44.9 Chronic obstructive pulmonary disease, unspecified; K21.9 Gastro-esophageal reflux disease without esophagitis; I10 Essential (primary) hypertension; E03.9 Hypothyroidism, unspecified; Z95.5 Presence of coronary angioplasty implant and graft; Z88.2 Allergy status to sulfonamides; Z88.0 Allergy status to penicillin
CPT/HCPCS: 93005; 93458; C1725; C1769; C1874; C1887; C9600; J1644; J2250; J3010; Q9967

== ENCOUNTER → 2018-06-06 | Outpatient (CLI) | payer OTHER | LOC: BHFA 09:00 | PROVIDERS: ATTEND Internal Medicine Cardiovascular Disease | DX: I25.10 Atherosclerotic heart disease of native coronary artery without angina pectoris (principal); I10 Essential (primary) hypertension | CPT/HCPCS: 78452; 93017; A9500; J2785 ==

== ENCOUNTER → 2018-06-27 | Outpatient (CLI) | payer OTHER | LOC: BHFA 10:00 | PROVIDERS: ATTEND Internal Medicine Cardiovascular Disease | DX: R06.02 Shortness of breath (principal) ==